=== PATIENT | male | born 1975 | race Caucasian/White ===

== ENCOUNTER 2017-12-30 20:06 | Emergency (ER) | payer MEDICARE, MEDICAID ==
[~2017-12-30] VITALS: Ht 177.8 cm; Wt 70.8 kg
[2017-12-31] MEDS ORDERED: LORazepam 2MG/ML-1ML VIAL IV ONE ×2 (06:15→09:00)
[2017-12-31] MEDS ORDERED: SODIUM CHLORIDE 0.9% 1,000 ML IVB ONE (07:40)
[2017-12-31 08:13] LABS: Basophils # (auto) 0 uL; Basophils % (auto) 0.5 % (0.0-2.0); Eosinophils # (auto) 0.1 uL; Eosinophils % (auto) 1.5 % (0.0-7.0); Hematocrit 37.6 % (41.0-53.0); Hemoglobin 12.6 g/dL (13.5-17.5); Lymphocytes # (auto) 2.2 uL; Lymphocytes % (auto) 26.5 % (10.0-50.0); Mean Corpuscular Hemoglobin 32.6 pg (28.0-32.0); Mean Corpuscular Hgb Conc. 33.6 g/dL (32.0-36.0); Mean Corpuscular Volume 96.9 fL (80.0-100.0); Monocytes # (auto) 0.6 uL; Monocytes % (auto) 7.6 % (0.0-12.0); Neutrophils # (auto) 5.2 uL; Neutrophils % (auto) 63.9 % (37.0-80.0); Platelet Count (auto) 252 10^3/uL (140-450); Red Blood Cells 3.88 10^6/uL (4.5-5.90); Red Cell Distribution Width 12.8 % (11.8-14.3); White Blood Cell 8.2 10^3/uL (4.4-10.8)
[2017-12-31 08:51] LABS: Albumin 3.7 g/dL (3.4-5.0); Calcium 9.3 mg/dL (8.5-10.1); Magnesium 2.5 mg/dL (1.6-2.6); Potassium 4.2 mmol/L (3.5-5.1)
[2017-12-31 08:52] LABS: BUN/Creatinine Ratio 16.7
[2017-12-31 08:56] LABS: Bilirubin, Total 0.3 mg/dL (0.2-1.0); Total Protein 7.7 g/dL (6.4-8.2)
[2017-12-31 10:58] VITALS: BP 129/74
[2017-12-31] MEDS ORDERED: LIDOCAINE 2% JELLY 11ml (GLYDO) ONE (11:23)
[2017-12-31] MEDS ORDERED: FLEET ENEMA(ADULT) 135 ML PR ONE ×2 (11:26→11:30)
[2017-12-31] MEDS ORDERED: LIDOCAINE 2% JELLY 11ml (GLYDO) UR ONE (11:30)
== END 2017-12-31 13:35 | disposition home or self-care (01) ==
LOC: ER 20:07
DX: K59.00 Constipation, unspecified (principal); G80.9 Cerebral palsy, unspecified; Z88.0 Allergy status to penicillin; Z88.6 Allergy status to analgesic agent
CPT/HCPCS: 36415; 74018; 80053; 83690; 83735; 85025; 96374; 96376; 99285; J2060; J7030

== ENCOUNTER 2018-03-01 12:02 | Emergency (ER) | payer MEDICARE, MEDICAID ==
[~2018-03-01] VITALS: Ht 185.4 cm; Wt 67.1 kg
[2018-03-01] MEDS ORDERED: FLEET ENEMA(ADULT) 135 ML PR ONE (16:15)
[2018-03-01 18:00] VITALS: BP 117/63
== END 2018-03-01 19:40 | disposition home or self-care (01) ==
LOC: ER 12:04
DX: K59.00 Constipation, unspecified (principal); Z88.0 Allergy status to penicillin
CPT/HCPCS: 74176

== ENCOUNTER 2018-03-15 14:47 | Emergency (ER) | payer MEDICARE, MEDICAID ==
[~2018-03-15] VITALS: Ht 188 cm; Wt 68.9 kg
[2018-03-15] MEDS ORDERED: LORazepam 2MG/ML-1ML VIAL ONE (16:44)
[2018-03-15] MEDS ORDERED: LORazepam 2MG/ML-1ML VIAL IM ONE (17:00)
[2018-03-15 20:17] VITALS: BP 125/80
[2018-03-15] MEDS ORDERED: MAGNESIUM CITRATE SOLUTION 300 ML BTL PO ONE (23:15)
[2018-03-16] MEDS ORDERED: FLEET ENEMA(ADULT) 135 ML PR ONE (00:45)
== END 2018-03-16 01:10 | disposition home or self-care (01) ==
LOC: ER 14:47
DX: N43.3 Hydrocele, unspecified (principal); R11.2 Nausea with vomiting, unspecified; Z88.0 Allergy status to penicillin; Z88.6 Allergy status to analgesic agent
CPT/HCPCS: 74176; 76870; 96372; 99284; J2060

== ENCOUNTER 2018-04-13 14:09 | Emergency (ER) | payer MEDICARE, MEDICAID ==
[~2018-04-13] VITALS: Ht 177.8 cm; Wt 72.6 kg
[~2018-04-13 14:09] MED LIST: ATEN-60 PO; ATOM60CA4 PO; BACL10TA PO; BENZ2TAB2 PO; CLON0.2D6 PO; DIVA250T3 PO; KEP500T PO; LACT10SO3 PO; LINA1CAP2 PO; OLAN10TA29 PO; OME20T PO; OXCA600T3 PO; TRAZ-220 PO
[2018-04-13] MEDS ORDERED: SODIUM CHLORIDE 0.9% 1,000 ML IV ONE (14:18)
[2018-04-13] MEDS ORDERED: LORazepam 2MG/ML-1ML VIAL IV ONE ×3 (14:30→16:00)
[2018-04-13 14:56] LABS: Basophils # (auto) 0 uL; Basophils % (auto) 0.3 % (0.0-2.0); Eosinophils # (auto) 0.1 uL; Eosinophils % (auto) 1.1 % (0.0-7.0); Hematocrit 35.9 % (41.0-53.0); Hemoglobin 12.5 g/dL (13.5-17.5); Lymphocytes # (auto) 1.4 uL; Lymphocytes % (auto) 11.2 % (10.0-50.0); Mean Corpuscular Hemoglobin 34.1 pg (28.0-32.0); Mean Corpuscular Hgb Conc. 34.9 g/dL (32.0-36.0); Mean Corpuscular Volume 97.8 fL (80.0-100.0); Monocytes # (auto) 1.1 uL; Monocytes % (auto) 8.2 % (0.0-12.0); Neutrophils # (auto) 10.3 uL; Neutrophils % (auto) 79.2 % (37.0-80.0); Platelet Count (auto) 290 10^3/uL (140-450); Red Blood Cells 3.67 10^6/uL (4.5-5.90); Red Cell Distribution Width 13.1 % (11.8-14.3); White Blood Cell 12.9 10^3/uL (4.4-10.8)
[2018-04-13 15:13] LABS: INR 1.05 (0.9-1.15); Partial Thromboplastin Time 27.3 sec (23.78-33.04); Prothrombin Time 11.2 sec (9.27-12.13)
[2018-04-13 15:15] LABS: Albumin 3.3 g/dL (3.4-5.0); BUN/Creatinine Ratio 21.4; Calcium 8.4 mg/dL (8.5-10.1); Potassium 4.4 mmol/L (3.5-5.1)
[2018-04-13 15:18] LABS: Bilirubin, Total 0.2 mg/dL (0.2-1.0); Total Protein 6.8 g/dL (6.4-8.2)
[2018-04-13] MEDS ORDERED: LIDOCAINE VISCOUS 2% 15ML UD MT ONE (16:00)
[2018-04-13] MEDS ORDERED: ONDANSETRON ODT 4 MG TAB PO ONE (16:30)
== END 2018-04-13 16:38 | disposition home or self-care (01) ==
LOC: EDBD 14:09 → ER 14:09
DX: S00.512A Abrasion of oral cavity, initial encounter (principal); K06.9 Disorder of gingiva and edentulous alveolar ridge, unspecified; I10 Essential (primary) hypertension; Z88.0 Allergy status to penicillin; Z88.6 Allergy status to analgesic agent; Z79.899 Other long term (current) drug therapy; X58.XXXA Exposure to other specified factors, initial encounter; Y93.89 Activity, other specified; Y92.89 Other specified places as the place of occurrence of the external cause; Y99.8 Other external cause status
CPT/HCPCS: 36415; 80053; 85025; 85610; 85730; 99283; J2060; J7030; Q0162

== ENCOUNTER 2018-06-24 10:01 | Emergency (ER) | payer MEDICARE, MEDICAID ==
[2018-06-24 11:14] VITALS: BP 113/58
[2018-06-24] MEDS ORDERED: LIDOCAINE 1% HCL (LOCAL ANESTH.) INJ 20ML MDV IJ ONE (11:45)
== END 2018-06-24 12:09 | disposition home or self-care (01) ==
LOC: ER 10:01
DX: S01.81XA Laceration without foreign body of other part of head, initial encounter (principal); F90.9 Attention-deficit hyperactivity disorder, unspecified type; F84.0 Autistic disorder; Z88.0 Allergy status to penicillin; Z88.6 Allergy status to analgesic agent; W01.190A Fall on same level from slipping, tripping and stumbling with subsequent striking against furniture, initial encounter; Y93.89 Activity, other specified; Y92.89 Other specified places as the place of occurrence of the external cause; Y99.8 Other external cause status
CPT/HCPCS: 12011; 99283; J2001; 12001

== ENCOUNTER 2019-12-15 09:29 | Emergency (ER) | payer MEDICARE, MEDICAID ==
[~2019-12-15] VITALS: Ht 172.7 cm; Wt 63.5 kg
[~2019-12-15 09:29] MED LIST changes: +DIVA250T12 PO; -DIVA250T3 PO; -OLAN10TA29 PO; +OLAN1TAB19 PO
[2019-12-15 10:02] VITALS: BP 120/82
== END 2019-12-15 11:32 | disposition home or self-care (01) ==
LOC: ER 09:29
DX: N50.811 Right testicular pain (principal); Z76.0 Encounter for issue of repeat prescription